=== PATIENT | female | born 1985 | race Caucasian/White ===

== ENCOUNTER 2019-06-06 20:04 | Emergency (ER) | payer OTHER ==
[~2019-06-06] VITALS: Ht 167.6 cm; Wt 144.2 kg
[~2019-06-06 20:04] MED LIST: ONDA-24 PO; UNKNOWN ANTIBIOTIC
[2019-06-06 20:28] VITALS: BP 130/70
--- NOTE | 2019-06-06 20:31 | NUR ---
TO LOBBY A/W BED AMBULATORY
--- NOTE | 2019-06-06 21:55 | NUR ---
34 YO F BIB SELF PRESENTS TO ED C/O 510 ACHING LOWER BACK PAIN X 1.5 WEEKS. PT DENIES RECENT TRAUMA/INJURY. DENIES PT REPORTS RELIEF FROM LAYING ON SIDE WITH PILLOW SUPPORTING BACK. DENIES URINARY PAIN OR BURNING. PT REPORTS TAKING TYLENOL AND TYLENOL WITH CODEINE WITH MINIMAL RELIEF. -- PT AWAKE, ALERT, CALM, COOPERATIVE. ANSWERING QUESTIONS APPROPRIATELY. BEHAVIOR AGE APPROPRIATE. -- SKIN PINK, WARM, DRY. BREATHING EVEN, UNLABORED. PMH-- HYPERLIPIDEMIA
[2019-06-06] MEDS ORDERED: CYCLOBENZAPRINE 10 MG TAB PO ONE (22:15)
[2019-06-06] MEDS ORDERED: HYDROcodone/APAP 5/325 MG 1 TAB TAB PO ONE (22:15)
[2019-06-06 22:53] VITALS: BP 133/84
--- NOTE | 2019-06-06 22:53 | NUR ---
Patient discharged with v/s stable. Written and verbal after care instructions given and explained. Patient alert, oriented and verbalized understanding of instructions. Ambulatory with steady gait. All questions addressed prior to discharge. ID band removed. Patient advised to follow up with PMD. Rx of [place] and Flexeril given. Patient educated on indication of medication including possible reaction and side effects. Opportunity to ask questions provided and answered.
== END 2019-06-06 22:53 | disposition home or self-care (01) ==
LOC: MED 20:04
DX: S39.012A Strain of muscle, fascia and tendon of lower back, initial encounter (principal); E78.5 Hyperlipidemia, unspecified; Z79.899 Other long term (current) drug therapy; Z88.8 Allergy status to other drugs, medicaments and biological substances; X58.XXXA Exposure to other specified factors, initial encounter; Y93.89 Activity, other specified; Y92.89 Other specified places as the place of occurrence of the external cause; Y99.8 Other external cause status
CPT/HCPCS: 99283

== ENCOUNTER 2019-07-01 15:38 | Emergency (ER) | payer OTHER ==
[~2019-07-01] VITALS: Ht 167.6 cm; Wt 142.5 kg
[2019-07-01 15:50] VITALS: BP 145/95
--- NOTE | 2019-07-01 16:10 | NUR ---
PT AMBULATED TO LOBBY AT THIS TIME, VSS, EKG READS SINUS TACH
--- NOTE | 2019-07-01 16:50 | NUR ---
PT TAKEN TO BED 11.
--- NOTE | 2019-07-01 17:10 | NUR ---
34 Y/O FEMALE C/O RAPID HEART RATE OCCURED AROUND 1430 AND LASTED 20 MINUTES. CURRENT HEART RATE 108. DENIES CHEST PAIN. MEDHX:HLD RX:VIT D
[2019-07-01] MEDS: LORazepam 1 MG TAB PO ONE (17:37)
--- NOTE | 2019-07-01 17:42 | NUR ---
PT. C/O 04/29 BACK PAIN. NOTIFIED
[2019-07-01 18:09] LABS: BASOPHILS # (AUTO) 0.1 K/uL (0.00-0.22); BASOPHILS % (AUTO) 0.7 % (0.0-2.0); EOSINOPHILS # (AUTO) 0.1 K/uL (0-0.4); EOSINOPHILS % (AUTO) 0.7 % (0.0-4.0); HEMATOCRIT 39.6 % (36-48); HEMOGLOBIN 13.1 g/dL (12.0-16.0); LYMPHOCYTES # (AUTO) 2.4 K/uL (2.5-16.5); LYMPHOCYTES % (AUTO) 25.6 % (20.5-51.1); MEAN CORPUSCULAR HEMOGLOBIN 29 pg (27-31); MEAN CORPUSCULAR HGB CONC 33 g/dL (33-37); MEAN CORPUSCULAR VOLUME 88.1 fL (80-94); MONOCYTES # (AUTO) 0.8 K/uL (0.8-1.0); MONOCYTES % (AUTO) 8.8 % (1.7-9.3); NEUTROPHILS % (AUTO) 64.2 % (42.2-75.2); PLATELET COUNT (AUTO) 283 K/uL (140-450); RED CELL DISTRIBUTION WIDTH 12.6 % (11.6-13.7); WHITE BLOOD COUNT (AUTO) 9.4 K/uL (4.8-10.8)
[2019-07-01 18:19] LABS: ANION GAP 10.8 (8-16); CARBON DIOXIDE 28.7 mmol/L (21-32); CREATININE 0.7 mg/dL (0.6-1.3); POTASSIUM 3.5 mmol/L (3.5-5.1)
[2019-07-01 18:24] LABS: ALBUMIN 3.7 g/dL (3.4-5.0); TOTAL BILIRUBIN 0.6 mg/dL (0.0-1.0)
[2019-07-01] MEDS: HYDROcodone/APAP 5/325 MG 1 TAB TAB PO ONE (18:52)
[2019-07-01 19:11] VITALS: BP 129/71
--- NOTE | 2019-07-01 19:12 | NUR ---
Patient discharged with v/s stable. Written and verbal after care instructions given and explained. Patient alert, oriented and verbalized understanding of instructions. Ambulatory with steady gait. All questions addressed prior to discharge. ID band removed. Patient advised to follow up with PMD. Rx of NORCO 5MG-325MG given. Patient educated on indication of medication including possible reaction and side effects. Opportunity to ask questions provided and answered.
== END 2019-07-01 19:12 | disposition home or self-care (01) ==
LOC: MED 15:38
DX: F41.9 Anxiety disorder, unspecified (principal); R51 Headache; Z88.6 Allergy status to analgesic agent; Z79.899 Other long term (current) drug therapy
CPT/HCPCS: 36415; 80053; 84484; 85025; 93005; 99284

== ENCOUNTER 2019-08-02 20:32 | Emergency (ER) | payer OTHER ==
[~2019-08-02] VITALS: Ht 167.6 cm; Wt 142.9 kg
[2019-08-02 20:38] VITALS: BP 153/84
--- NOTE | 2019-08-02 20:49 | NUR ---
PT AMBULATORY WITH STDRAY GAIT TO ED JEREMIAH
--- NOTE | 2019-08-02 21:08 | NUR ---
PT AMBULATED TO ER BED 08
--- NOTE | 2019-08-02 21:14 | NUR ---
34Y FEMALE PRESENTED TO ED, C/O LT CHEST PAIN WITH SOB ON/OFF X2WKS. PT STATED "MY CHEST PAIN IS MORE LIKE PRESSURE TIGHTNESS" NON-RADIATING. PT WAS HERE LAST MONTH FOR HEART PALPITATION. DENIES BLURRY VISION/N/V/D, -FEVER/CHILLS, PT AAOX4, RR EVEN UNLABORED, GCS 15, EDMD MADE AWARE, WILL CONTINUE TO MONITOR CLOSELY. BED LOCKED IN LOWEST POSITION, SIDERAILS UPX1. PMH; HIGH CHOLESTEROL
[2019-08-02 23:55] VITALS: BP 144/82
--- NOTE | 2019-08-02 23:55 | NUR ---
Patient discharged with v/s stable. Written and verbal after care instructions given and explained. Patient alert, oriented and verbalized understanding of instructions. Ambulatory with steady gait. All questions addressed prior to discharge. ID band removed. Patient advised to follow up with PMD. Rx of NORCO 5MG-325MG AND ATARAX 25MG given. Patient educated on indication of medication including possible reaction and side effects. Opportunity to ask questions provided and answered.
== END 2019-08-02 23:55 | disposition home or self-care (01) ==
LOC: MED 20:32
DX: R07.9 Chest pain, unspecified (principal); Z79.899 Other long term (current) drug therapy; Z88.6 Allergy status to analgesic agent; Z88.8 Allergy status to other drugs, medicaments and biological substances
CPT/HCPCS: 81002; 81025; 93005; 99283

== ENCOUNTER 2019-10-29 19:20 | Emergency (ER) | payer OTHER ==
[~2019-10-29] VITALS: Ht 167.6 cm; Wt 142.4 kg
[2019-10-29 19:30] VITALS: BP 150/90
--- NOTE | 2019-10-29 19:30 | NUR ---
TO LOBBY A/W BED , AMBULATORY
--- NOTE | 2019-10-29 19:46 | NUR ---
34 Y/O FEMALE BIB SELF FOR SOB AND CHEST PAIN. PATIENT STATES THAT SHE HAS HEADACHE AND CHEST PAIN THAT IS 6/10 ACUTE PAIN. PATIENT STATES THAT "I HAVE HAD PALPITATIONS AND DON'T FEEL THEM NOW BUT THEY COME AND GO. I WAS KIND OF GASPING EARLIER. THIS MORNING, I HAD A HEADACHE AND TOOK 1500MG EXTRA STRENGTH TYLENOL". A/OX4 AND FOLLOWS COMMANDS; BREATHING IS SYMMETRICAL AND UNLABORED; RR 17 AND SPO2 99% ON RA. LAST BM WAS EARLIER TODAY; NORMAL. HR IS 90. ERMD MADE AWARE OF STATUS. SIDE RAILSX1. PLACED ON MONITOR. PMH: HIGH CHOLESTEROL; PRE-DIABETES RX:DENIES ALLERGIES: IBUPROFEN; ASA; EXCEDRIN
--- NOTE | 2019-10-29 19:46 | NUR ---
PT AMBULATED TO BED 12
--- NOTE | 2019-10-29 19:54 | NUR ---
ERMD AT BEDSIDE EVALUATING PATIENT.
[2019-10-29 20:25] VITALS: BP 123/72
--- NOTE | 2019-10-29 20:25 | NUR ---
Patient discharged with v/s stable. Written and verbal after care instructions given and explained. Patient verbalized understanding. Ambulatory with steady gait. All questions addressed prior to discharge. Advised to follow up with PMD.
== END 2019-10-29 20:25 | disposition home or self-care (01) ==
LOC: MED 19:20
DX: F41.9 Anxiety disorder, unspecified (principal); F32.9 Major depressive disorder, single episode, unspecified; Z79.899 Other long term (current) drug therapy; Z88.8 Allergy status to other drugs, medicaments and biological substances
CPT/HCPCS: 93005; 96372; 99283

== ENCOUNTER 2021-02-15 12:51 | Emergency (ER) | payer OTHER ==
[~2021-02-15] VITALS: Ht 167.6 cm; Wt 139.3 kg
[2021-02-15 13:08] VITALS: BP 144/84
--- NOTE | 2021-02-15 13:43 | NUR ---
AMBULATED TO BED 4
--- NOTE | 2021-02-15 14:00 | NUR ---
35/F FROM TRIAGE WITH A COMPLAINT OF L SHOULDER PAIN. DENIES RECENT INJURY/TRAUMA. +ROM. PENDING MSE.
[2021-02-15] MEDS ORDERED: KETOROLAC 60 MG/2 ML VIAL IM ONE (14:20)
[2021-02-15] MEDS ORDERED: IBUP-2213 PO ×2 (14:23→14:48)
[2021-02-15] MEDS ORDERED: ATA25 PO ×2 (14:23→14:48)
[2021-02-15 14:48] VITALS: BP 136/81
--- NOTE | 2021-02-15 14:48 | NUR ---
Patient discharged with v/s stable. Written and verbal after care instructions given and explained. Patient alert, oriented and verbalized understanding of instructions. Ambulatory with steady gait. All questions addressed prior to discharge. ID band removed. Patient advised to follow up with PMD. Rx of ATARAX AND IBUPROFEN given. Patient educated on indication of medication including possible reaction and side effects. Opportunity to ask questions provided and answered.
== END 2021-02-15 14:48 | disposition home or self-care (01) ==
LOC: MED 12:51
DX: R07.89 Other chest pain (principal); F41.9 Anxiety disorder, unspecified; Z79.899 Other long term (current) drug therapy
CPT/HCPCS: 93005; 96372; 99283; J1885

== ENCOUNTER 2021-04-02 03:15 | Emergency (ER) | payer OTHER ==
[~2021-04-02] VITALS: Ht 167.6 cm; Wt 139.3 kg
[~2021-04-02 03:15] MED LIST changes: +ATA25 PO; +IBUP-2213 PO
[2021-04-02 03:20] VITALS: BP 148/45
--- NOTE | 2021-04-02 03:30 | NUR ---
PT AMBULATED TO BED 03.
--- NOTE | 2021-04-02 03:38 | NUR ---
35 Y/O FEMALE C/O SORE THROAT X0100. PT STATES SHE WOKE UP FROM SLEEP AND FELT HER THROAT CLOSING. LUNG SOUNDS CLEAR. ON ROOM AIR. PT STATES 10/10 SORENESS, THROAT PAIN. NO REDNESS NOTED. DENIES ANY RECENT FEVER OR COUGH. MEDHX: ANXIETY, HIGH CHOLESTEROL ALLERGIES: EXCEDRIN, ADVIL, MOTRIN
--- NOTE | 2021-04-02 03:48 | NUR ---
ERMD AT BEDSIDE EXAMINING PT
[2021-04-02] MEDS ORDERED: KETOROLAC 60 MG/2 ML VIAL IM ONE (04:00)
[2021-04-02 04:14] VITALS: BP 148/45
--- NOTE | 2021-04-02 04:14 | NUR ---
Patient discharged with v/s stable. Written and verbal after care instructions given and explained. Patient verbalized understanding. ID Band Removed. Ambulatory with steady gait. All questions addressed prior to discharge. Advised to follow up with PMD.
== END 2021-04-02 04:14 | disposition home or self-care (01) ==
LOC: MED 03:15
DX: J02.9 Acute pharyngitis, unspecified (principal); F41.9 Anxiety disorder, unspecified; E78.00 Pure hypercholesterolemia, unspecified; Z88.6 Allergy status to analgesic agent; Z88.5 Allergy status to narcotic agent
CPT/HCPCS: 96372; 99283; J1885

== ENCOUNTER 2021-11-06 20:33 | Emergency (ER) | payer OTHER ==
[~2021-11-06] VITALS: Ht 167.6 cm; Wt 148.3 kg
[~2021-11-06 20:33] MED LIST changes: +ONDA-188 PO; -ONDA-24 PO
--- NOTE | 2021-11-06 20:38 | NUR ---
TO LOBBY A/W BED AMBULATORY
[2021-11-06 20:39] VITALS: BP 160/94
[2021-11-06 22:00] VITALS: BP 160/94
--- NOTE | 2021-11-06 22:00 | NUR ---
SEEN AND EXAMINED BY DONG , WITH ORDERS AND CARRIED OUT
[2021-11-06 22:39] LABS: BASOPHILS # (AUTO) 0.1 K/uL (0.00-0.22); BASOPHILS % (AUTO) 0.7 % (0.0-2.0); EOSINOPHILS % (AUTO) 0.4 % (0.0-4.0); HEMATOCRIT 38.9 % (36-48); HEMOGLOBIN 13.1 g/dL (12.0-16.0); LYMPHOCYTES # (AUTO) 3.3 K/uL (2.5-16.5); LYMPHOCYTES % (AUTO) 34.5 % (20.5-51.1); MEAN CORPUSCULAR HEMOGLOBIN 29 pg (27-31); MEAN CORPUSCULAR HGB CONC 34 g/dL (33-37); MEAN CORPUSCULAR VOLUME 86.5 fL (80-94); MONOCYTES # (AUTO) 0.6 K/uL (0.8-1.0); MONOCYTES % (AUTO) 6.1 % (1.7-9.3); NEUTROPHILS # (AUTO) 5.6 K/uL (1.8-7.7); NEUTROPHILS % (AUTO) 58.3 % (42.2-75.2); PLATELET COUNT (AUTO) 445 K/uL (140-450); WHITE BLOOD COUNT (AUTO) 9.7 K/uL (4.8-10.8)
[2021-11-06] MEDS ORDERED: LORazepam 0.5 MG TAB PO ONE (22:45)
--- NOTE | 2021-11-06 22:55 | NUR ---
MEDICATED PER ERMDS ORDER, TOLERATED WELL.
[2021-11-06 23:15] LABS: ANION GAP 15.2 (8-16); CARBON DIOXIDE 26.8 mmol/L (21-32); CREATININE 0.8 mg/dL (0.6-1.3)
[2021-11-06 23:32] LABS: ALBUMIN 3.9 g/dL (3.4-5.0); THYROID STIMULATING HORMONE 0.83 uIU/mL (0.34-3.74); TOTAL BILIRUBIN 0.4 mg/dL (0.0-1.0)
== END 2021-11-07 00:44 | disposition home or self-care (01) ==
LOC: MED 20:33
DX: F41.9 Anxiety disorder, unspecified (principal); R00.2 Palpitations; R42 Dizziness and giddiness; R53.1 Weakness; Z79.899 Other long term (current) drug therapy; Z88.6 Allergy status to analgesic agent; Z88.8 Allergy status to other drugs, medicaments and biological substances
CPT/HCPCS: 36415; 71045; 80053; 84443; 84484; 85025; 99285; Q0092; 93005

== ENCOUNTER 2022-02-09 01:50 | Emergency (ER) | payer OTHER ==
[~2022-02-09] VITALS: Ht 167.6 cm; Wt 148.3 kg
[2022-02-09 01:59] VITALS: BP 123/85
--- NOTE | 2022-02-09 02:14 | NUR ---
36 YO/F BIB SELF W C/O DIZZINES X1 DAYS FOLLOWING A 3 12 HOURS SHIFT OF WORK AND NOT EATING MUCH D/T BEING BUSY AND TIRED. PT REPORTS LAST FEELING DIZZY THIS MORNING AT 0830, TAKING MECLEZINE AND DIZZINESS WENT AWAY. PT ALSO REPORTS MILD HEAD ACHE PRESSURE NON-RAD 01/27 BUT REPORTS SHE USUALLY HAS HEADACHES AND HAS HAD MRIs IN THE PAST AND EVERYTHING HAS BEEN OK. PT DENIES ANY SYMPTOMS AT THIS TIME AND RELATES EPISODES TO HER ANXIETY. PT SITTING IN BED, BREATHING EVEN AND UNLABORED. VSS. PMH: HIGH CHOL, ANXIETY, PANIC ATTACKS ALLERGIES: DENIES
[2022-02-09 02:35] LABS: APPEARANCE,URINE CLEAR (CLEAR); BILIRUBIN,URINE NEGATIVE (NEGATIVE); BLOOD, URINE NEGATIVE (NEGATIVE); COLOR,URINE YELLOW (YELLOW); LEUKOCYTE ESTERASE ,URINE NEGATIVE (NEGATIVE); NITRITE, URINE NEGATIVE (NEGATIVE); UGLUCOSE NEGATIVE (NEGATIVE)
[2022-02-09 02:48] LABS: BASOPHILS % (AUTO) 0.4 % (0.0-2.0); EOSINOPHILS # (AUTO) 0.2 K/uL (0-0.4); EOSINOPHILS % (AUTO) 1.7 % (0.0-4.0); HEMATOCRIT 37.3 % (36-48); HEMOGLOBIN 12.3 g/dL (12.0-16.0); LYMPHOCYTES # (AUTO) 4.3 K/uL (2.5-16.5); LYMPHOCYTES % (AUTO) 46.3 % (20.5-51.1); MEAN CORPUSCULAR HEMOGLOBIN 29 pg (27-31); MEAN CORPUSCULAR HGB CONC 33 g/dL (33-37); MEAN CORPUSCULAR VOLUME 87.3 fL (80-94); MONOCYTES # (AUTO) 0.9 K/uL (0.8-1.0); MONOCYTES % (AUTO) 9.5 % (1.7-9.3); NEUTROPHILS # (AUTO) 3.9 K/uL (1.8-7.7); NEUTROPHILS % (AUTO) 42.1 % (42.2-75.2); PLATELET COUNT (AUTO) 304 K/uL (140-450); RED BLOOD CELL COUNT(AUTO) 4.27 MIL/uL (4.20-5.40); RED CELL DISTRIBUTION WIDTH 12.7 % (11.6-13.7); WHITE BLOOD COUNT (AUTO) 9.3 K/uL (4.8-10.8)
[2022-02-09 03:02] LABS: ALBUMIN 3.3 g/dL (3.4-5.0); ANION GAP 11.1 (8-16); CARBON DIOXIDE 29.2 mmol/L (21-32); CREATININE 0.7 mg/dL (0.6-1.3); POTASSIUM 3.3 mmol/L (3.5-5.1)
[2022-02-09 03:12] VITALS: BP 123/85
--- NOTE | 2022-02-09 03:12 | NUR ---
Patient discharged with v/s stable. Written and verbal after care instructions given and explained. Patient verbalized understanding. Ambulatory with steady gait. All questions addressed prior to discharge. Advised to follow up with PMD. D/C COMPLETED BY DONG MON.
== END 2022-02-09 03:12 | disposition home or self-care (01) ==
LOC: MED 01:50
DX: E16.2 Hypoglycemia, unspecified (principal); R42 Dizziness and giddiness; F41.9 Anxiety disorder, unspecified; Z88.6 Allergy status to analgesic agent; Z88.5 Allergy status to narcotic agent
CPT/HCPCS: 36415; 80053; 81003; 81025; 85025; 99283